=== PATIENT | male | born 1985 | race Caucasian/White ===

== ENCOUNTER 2019-06-08 14:37 | Emergency (ER) | payer BC, OTHER ==
[2019-06-08] MEDS ORDERED: NS 0.9% 1000 ML** 1,000 ML IV ONE (17:38)
[2019-06-08 17:40] LABS: ABS Basophils 0.1 10^3/ul (0-0.2); ABS Eosinophils 0.2 10^3/ul (0-0.6); ABS Lymphocytes 2.9 10^3/ul (1.0-4.8); ABS Monocytes 0.4 10^3/ul (0-0.8); ABS Neutrophils 5.7 10^3/ul (1.5-7.7); Eosinophil % 1.9 %; Hematocrit 47 % (42-52); Hemoglobin 16.5 g/dL (14.0-18.0); Lymphocyte % 31.5 %; Mean Corpuscular HGB Conc 35 g/dL (31-36); Mean Corpuscular Hemoglobin 30 pg (27-31); Mean Corpuscular Volume 85 fL (80-94); Mean Platelet Volume 7.2 fL (7.4-10.4); Nucleated Red Blood Cells % 0.2; Platelet Count 314 10^3/uL (150-450); Red Blood Count 5.49 10^6 /uL (4.18-5.48); Red Cell Distribution Width 13 % (10-15); White Blood Count 9.3 10^3/uL (3.5-10.8)
[2019-06-08 17:47] LABS: INR 1.07 (0.82-1.09)
[2019-06-08 17:59] LABS: Albumin 4.8 g/dL (3.2-5.2); Albumin/Globulin Ratio 1.6 (1-3); Calcium 9.7 mg/dL (8.6-10.3); EGFR African American 104.8 (>60); EGFR Non-African American 86.6 (>60); Potassium 3.5 mmol/L (3.5-5.0); Total Bilirubin 0.9 mg/dL (0.2-1.0); Total Protein 7.8 g/dL (6.4-8.9)
--- NOTE | 2019-06-08 18:04 | ED ---
HPI Chest Pain - HPI Summary HPI Summary: 34-year-old male presents with chest pain for the past couple days. He states it is worse when he eats. He admits to nausea. he's been taking Tums relief. He denies any shortness breath. No recent illness. No cough. Does have a history of asthma. He states that it is a pressure in the center of his chest. He states he has no pain right now. He had lab work and vasovagal. He does have family history of cardiac disease and his grandfather had heart attack at late age. He does smoke marijuana. Doesn't smoke cigarettes. No history of high blood pressure diabetes. - History of Current Complaint Chief Complaint: EDChestPainROMI Time Seen by Provider: 06/08/19 17:37 Pain Intensity: 6 - Allergy/Home Medications Allergies/Adverse Reactions: Allergies Allergy/AdvReac Type Severity Reaction Status Date / Time environmental/seasonal Allergy sneezing, Uncoded 05/10/13 09:08 hayfever congestion, Home Medications: Home Medications Cetirizine* [ZyrTEC 10 MG TAB*] 10 mg PO DAILY 06/08/19 [History Confirmed 06/08] Ibuprofen TAB* [Motrin TAB* 400 MG] 400 mg PO Q6H PRN 06/08/19 [History Confirmed 06/08/19] Pantoprazole TAB * [Protonix TAB*] 40 mg PO DAILY 06/08/19 [History Confirmed ] PMH/Surg Hx/FS Hx/Imm Hx Endocrine/Hematology History: Denies: Hx Anticoagulant Therapy Respiratory History: Reports: Hx Asthma - RESCUE INHALER Musculoskeletal History: Reports: Other Musculoskeletal History - OCCASIONAL BACKACHES - NONE NOW Sensory History: Reports: Hx Contacts or Glasses - GLASSES Denies: Hx Hearing Aid Opthamlomology History: Reports: Hx Contacts or Glasses - GLASSES - Surgical History Surgery Procedure, Year, and Place: 2004 WISDOM TEETH EXTRACTION, OFFICE Hx Anesthesia Reactions: No Infectious Disease History: No Infectious Disease History: Denies: Traveled Outside the [place] in Last 30 Days - Family History Known Family History: Positive: Hypertension - Social History Alcohol Use: Occasionally Substance Use Type: Reports: Marijuana Smoking Status (MU): Never Smoked Tobacco Review of Systems Negative: Fever Positive: Chest Pain Negative: Shortness Of Breath, Cough All Other Systems Reviewed And Are Negative: Yes Physical Exam Triage Information Reviewed: Yes Vital Signs On Initial Exam: Initial Vitals Temp Pulse Resp BP Pulse Ox 99.1 F 100 18 137/89 97 06/08/19 14:49 06/08/19 14:49 06/08/19 14:49 06/08/19 14:49 06/08/19 14:49 Vital Signs Reviewed: Yes Appearance: Positive: Well-Appearing Skin: Positive: Warm, Dry Head/Face: Positive: Normal Head/Face Inspection Eyes: Positive: Normal, Conjunctiva Clear ENT: Positive: Pharynx normal Respiratory/Lung Sounds: Positive: Clear to Auscultation, Breath Sounds Present Cardiovascular: Positive: Normal, RRR Abdomen Description: Positive: Nontender, Soft Bowel Sounds: Positive: Present Musculoskeletal: Positive: Normal Neurological: Positive: Normal Psychiatric: Positive: Normal Procedures - Sedation Patient Received Moderate/Deep Sedation with Procedure: No Diagnostics - Vital Signs Vital Signs Temp Pulse Resp BP Pulse Ox 06/08/19 17:39 18 90/67 06/08/19 17:38 23 06/08/19 17:37 12 76/43 06/08/19 17:36 60/43 06/08/19 14:49 99.1 F 100 18 137/89 97 - Laboratory Lab Results: Lab Results 06/08/19 06/08/19 06/08/19 Range/Units 17:32 17:32 17:32 WBC 9.3 (3.5-10.8) 10^3/uL RBC 5.49 H (4.18-5.48) 10^6 /uL Hgb 16.5 (14.0-18.0) g/dL Hct 47 (42-52) % MCV 85 (80-94) fL MCH 30 (27-31) pg MCHC 35 (31-36) g/dL RDW 13 (10-15) % Plt Count 314 (150-450) 10^3/uL MPV 7.2 L (7.4-10.4) fL Neut % (Auto) 61.5 % Lymph % (Auto) 31.5 % [place] % (Auto) 4.5 % Eos % (Auto) 1.9 % Baso % (Auto) 0.6 % Absolute Neuts (auto) 5.7 (1.5-7.7) 10^3/ul Absolute Lymphs (auto) 2.9 (1.0-4.8) 10^3/ul Absolute Monos (auto) 0.4 (0-0.8) 10^3/ul Absolute Eos (auto) 0.2 (0-0.6) 10^3/ul Absolute Basos (auto) 0.1 (0-0.2) 10^3/ul Absolute Nucleated RBC 0.0 10^3/ul Nucleated RBC % 0.2 INR (Anticoag Therapy) 1.07 (0.82-1.09) Sodium 139 (135-145) mmol/L Potassium 3.5 (3.5-5.0) mmol/L Chloride 105 (101-111) mmol/L Carbon Dioxide 27 (22-32) mmol/L Anion Gap 7 (2-11) mmol/L BUN 15 (6-24) mg/dL Creatinine 1.00 (0.67-1.17) mg/dL Est GFR ( Amer) 104.8 (>60) Est GFR (Non-Af Amer) 86.6 (>60) BUN/Creatinine Ratio 15.0 (8-20) Glucose 77 (70-100) mg/dL Calcium 9.7 (8.6-10.3) mg/dL Total Bilirubin 0.90 (0.2-1.0) mg/dL AST 21 (13-39) U/L ALT 31 (7-52) U/L Alkaline Phosphatase 83 (34-104) U/L Troponin I 0.00 (<0.04) ng/mL Total Protein 7.8 (6.4-8.9) g/dL Albumin 4.8 (3.2-5.2) g/dL Globulin 3.0 (2-4) g/dL Albumin/Globulin Ratio 1.6 (1-3) Result Diagrams: 06/08/19 17:32 06/08/19 17:32 Lab Statement: Any lab studies that have been ordered have been reviewed, and results considered in the medical decision making process. - EKG No standard instances Cardiac Rate: NL EKG Rhythm: Sinus Rhythm Summary of EKG Findings: sinus rhythm Re-Evaluation - Re-Evaluation First Eval Re-Evaluation Time: 19:11 Change: Unchanged Comment: chest pain has not returned. Chest Pain Course/Dx - Course Course Of Treatment: 34-year-old male presents with chest pain for the past couple days. He states it is worse when he eats. He admits to nausea. he's been taking Tums relief. He denies any shortness breath. No recent illness. No cough. Does have a history of asthma. He states that it is a pressure in the center of his chest. He states he has no pain right now. He had lab work and vasovagal. He does have family history of cardiac disease and his grandfather had heart attack at late age. He does smoke marijuana. Doesn't smoke cigarettes. No history of high blood pressure diabetes. On exam lungs CTA. EKG shows sinus rhythm. Troponin 0. D-dimer negative. was evualated at clinic and had chest xray a couple days ago. We'll discharge have follow up primary. Patient understands agrees with plan. - Chest Pain Differential Diagnosis/HQI/PQRI: Acute MO, Chest Wall, Pulmonary Embolism - Diagnoses Provider Diagnoses: Atypical chest pain Discharge ED - Sign-Out/Discharge Documenting (check all that apply): Patient Departure - Discharge Plan Condition: Good Disposition: HOME Patient Education Materials: Noncardiac Chest Pain (ED) Referrals: Juan Oconnell MD [Primary Care Provider] - Additional Instructions: follow up with primary within 5 days Take tyenlol or ibuprofen every 6 hours Return to ED if develop any new or worsening symptoms - Billing Disposition and Condition Condition: GOOD Disposition: Home
[2019-06-08 18:21] LABS: C Reactive Protein 1.78 mg/L (<8.01)
[2019-06-08] MEDS ORDERED: Ketorolac INJ* 30 MG/ML 1 ML VIAL IV PUSH ONE (18:52)
[2019-06-08 19:31] VITALS: BP 117/78
== END 2019-06-08 19:25 | disposition home or self-care (01) ==
LOC: ED 14:37
DX: R07.89 Other chest pain (principal); J45.909 Unspecified asthma, uncomplicated; Z79.899 Other long term (current) drug therapy
CPT/HCPCS: 36415; 80053; 84484; 85025; 85379; 85610; 86140; 93005; 96361; 96374; 99283; J1885